=== PATIENT | female | born 1950 | race Caucasian/White ===

== ENCOUNTER → 2017-09-04 | Outpatient (CLI) | payer OTHER ==
[~2017-09-04] MED LIST: ATEN50TA7; ATEN50TA7 PO; CETI10 PO; COMMODE 3-IN-11 MIS; DIAZ5TAB; DICL1GEL7; EMPA1TAB3 PO; GABA400C5; GABA600T PO; GLIP5TAB; GLIP5TAB PO; HYDR-3583 PO; LISI10TA3; LOSA50TA PO; POTA-163 PO; SERT-129; SERT-129 PO; WALKER WHEELS/F1 MIS; ZANA4CAP PO
[2017-09-04 09:25] LABS: AUTOMATED NEUTROPHIL # 5.6 TH/MM3 (1.8-7.7); BASOPHIL % 0.4 % (0.0-2.0); EOSINOPHIL # 0.1 TH/MM3 (0-0.4); EOSINOPHIL % 1.7 % (0.0-4.0); HEMO FLAGS DIFF FINAL; LYMPH % 16.3 % (9.0-44.0); LYMPHOCYTE # 1.2 TH/MM3 (1.0-4.8); MEAN CELL VOLUME 89.6 FL (80.0-100.0); MEAN CORPUSCULAR HEMOGLOBIN 31.9 PG (27.0-34.0); MEAN CORPUSCULAR HGB CONC 35.5 % (32.0-36.0); MONO % 8.4 % (0.0-8.0); NEUT % 73.2 % (16.0-70.0); PLATELET COUNT 191 TH/MM3 (150-450); RED BLOOD COUNT 4.35 MIL/MM3 (4.00-5.30); RED CELL DISTRIBUTION WIDTH 13.4 % (11.6-17.2); WHITE BLOOD COUNT 7.7 TH/MM3 (4.0-11.0)
[2017-09-04 09:26] LABS: APTT (PATIENT) 24.7 SEC (24.3-30.1); PROTHROMBIN TIME - PATIENT 10.9 SEC (9.8-11.6)
[2017-09-04 09:50] LABS: BLOOD, URINE NEG (NEG); COMMENT (UR) CULT NOT INDICATED; CULTURE IF INDICATED CULT NOT INDICATED; GLUCOSE,URINE NEG (NEG); KETONE, URINE NEG (NEG); NITRITE,URINE NEG (NEG); PH, URINE 7.5 (5.0-8.5); SQUAMOUS EPITHELIAL CELL URINE 1 /hpf (0-5); TRANSITIONAL EPI CELLS, URINE <1 /hpf; URINE COLOR YELLOW (YELLW/STRAW)
--- NOTE | 2017-09-04 09:59 | RADRPT ---
EXAM DATE/TIME: 09/04/2017 09:32 [facility] COMPARISON: No previous studies available for comparison. INDICATIONS : Evaluate for pneumonia, pneumothorax, or communicable disease. Pre op for lumbar surgery. MEDICAL HISTORY : Hypertension. Osteoarthritis. Diabetic. SURGICAL HISTORY : Tubal ligation. ENCOUNTER: Initial ACUITY: 1 day PAIN SCORE: 0/10 LOCATION: chest FINDINGS: PA and lateral views of the chest demonstrate the lungs to be symmetrically aerated without evidence of mass, infiltrate or effusion. The cardiomediastinal contours are unremarkable. Osseous structure s are intact. CONCLUSION: No acute disease. Sanjeev Kirby MD on September 04, 2017 at 9:57 Board Certified Radiologist. This report was verified electronically.
[2017-09-04 11:33] LABS: ALT (GPT) 34 U/L (10-53); ANION GAP 10 MEQ/L (5-15); BICARBONATE 31.3 MEQ/L (21.0-32.0); BLOOD UREA NITROGEN 7 MG/DL (7-18); CHLORIDE 88 MEQ/L (98-107); GLOMERULAR FILTRATION RATE 80 ML/MIN (>89); GLUCOSE,FASTING 203 MG/DL (74-99); POTASSIUM 3.3 MEQ/L (3.5-5.1); SODIUM (NA) 129 MEQ/L (136-145)
[2017-09-04 11:38] LABS: ALKALINE PHOSPHATASE 106 U/L (45-117); AST (GOT) 19 U/L (15-37); TOTAL BILIRUBIN ADULT 0.9 MG/DL (0.2-1.0)
--- NOTE | 2017-09-04 13:21 | EKG ---
Date Performed: 09/04/2017 Time Performed: 08:46:08 PTAGE: 67 years EKG: Sinus rhythm NORMAL ECG NO PREVIOUS TRACING DOCTOR: Joe Garcia Interpretating Date/Time 09/04/2017 13:16:05
== END ==
LOC: CPRE 08:17
PROVIDERS: ATTEND Neurological Surgery
DX: Z01.812 Encounter for preprocedural laboratory examination (principal); Z01.811 Encounter for preprocedural respiratory examination; Z01.810 Encounter for preprocedural cardiovascular examination; M47.816 Spondylosis without myelopathy or radiculopathy, lumbar region
CPT/HCPCS: 36415; 71020; 80053; 81001; 85025; 85610; 85730; 93005

== ENCOUNTER → 2017-09-10 | Outpatient (CLI) | payer OTHER ==
[~2017-09-10] MED LIST changes: -ATEN50TA7; -DIAZ5TAB; -DICL1GEL7; -GABA400C5; -GLIP5TAB; -LISI10TA3; -SERT-129
[2017-09-10 12:17] LABS: GLUCOSE,FASTING 106 MG/DL (74-99)
[2017-09-10 17:27] LABS: HEMOGLOBIN A1b 1.7 %; HEMOGLOBIN Ao 83.8 %; HEMOGLOBIN F 0.2 %; HEMOGLOBIN LA1C 2.2 %; HEMOGLOBIN P3 3.9 %
== END ==
LOC: CPRE 10:24
PROVIDERS: ATTEND Neurological Surgery
DX: Z01.812 Encounter for preprocedural laboratory examination (principal); E11.9 Type 2 diabetes mellitus without complications; M47.816 Spondylosis without myelopathy or radiculopathy, lumbar region
CPT/HCPCS: 36415; 82947; 83036

== ENCOUNTER 2017-09-12 06:22 | Inpatient (IN) | payer OTHER ==
[~2017-09-12] VITALS: Ht 172.7 cm; Wt 102.8 kg
[~2017-09-12 06:22] MED LIST changes: -COMMODE 3-IN-11 MIS; -HYDR-3583 PO; -POTA-163 PO; -WALKER WHEELS/F1 MIS; -ZANA4CAP PO
[2017-09-12] MEDS ORDERED: POVIDONE IODINE 5% (ANTISEPSIS KIT) 4 APPLICATIONS EACH NARE PRN (06:45)
[2017-09-12] MEDS ORDERED: INSULIN HUMAN REGULAR 1,000 UNITS/10 ML VIAL SQ PRN (06:45)
[2017-09-12] MEDS ORDERED: LACTATED RINGER'S 1000 ML IV PRN (06:45)
[2017-09-12] MEDS ORDERED: METOPROLOL TARTRATE 25 MG TAB PO PRN (06:45)
[2017-09-12] MEDS ORDERED: CHLORHEXIDINE GLUCONATE 2 % 1 PACK (2 CLOTHS) TOPICAL PRN (06:45)
[2017-09-12] MEDS ORDERED: SODIUM CHLORID 0.9% 500 ML IV PRN (06:45)
[2017-09-12] MEDS ORDERED: SODIUM CHLOR 0.9% 1000 ML INJ 1,000 ML IV SCH (07:00)
[2017-09-12] MEDS ORDERED: VANCOMYCIN HCL 1000 MG ON-CALL/NS 250 ML IV SCH ×2 (07:00)
[2017-09-12] MEDS ORDERED: VANCOMYCIN HCL 1000 MG VIAL ONE (07:25)
[2017-09-12] MEDS ORDERED: THROMBIN (TOPICAL) 5,000 UNIT VIAL ONE (07:26)
[2017-09-12] MEDS ORDERED: GELFOAM SIZE 100 ONE (07:26)
[2017-09-12] MEDS ORDERED: HEPARIN SODIUM - SQ 10,000 UNITS/ML VIAL ONE (07:26)
[2017-09-12] MEDS ORDERED: ceFAZolin 2 GM PREMIX 50 ML ONE ×2 (07:26→10:13)
[2017-09-12] MEDS ORDERED: BUPIVACAINE/EPINEPHRINE 0.5% PF 30 ML VIAL ONE (07:26)
[2017-09-12] MEDS ORDERED: GENTAMICIN SULFATE 80 MG/2 ML VIAL ONE (07:26)
[2017-09-12] MEDS ORDERED: diphenhydrAMINE HCL 50 MG/ML VIAL ONE (09:22)
[2017-09-12] MEDS ORDERED: PHENYLEPHRINE HCL 10 MG/ML VIAL IV ONE (12:00)
[2017-09-12] MEDS ORDERED: ONDANSETRON HCL 4 MG/2 ML VIAL IV PUSH ONE (12:00)
[2017-09-12] MEDS ORDERED: DEXAMETHASONE SOD PHOS 4 MG/ML VIAL IV ONE (12:00)
[2017-09-12] MEDS ORDERED: PROPOFOL 200 MG/20 ML AMP IV ONE (12:00)
[2017-09-12] MEDS ORDERED: LIDOCAINE HCL 1% PF 5 ML AMPULE OTHER ONE (12:00)
[2017-09-12] MEDS ORDERED: MORPHINE SULFATE 4 MG/ML INJ IV ONE (12:00)
[2017-09-12] MEDS ORDERED: LACTATED RINGER'S 1000 ML INJ 3,000 ML IV ONE (12:00)
[2017-09-12] MEDS ORDERED: ePHEDrine/NS 25 MG/5 ML SYR IV ONE (12:00)
[2017-09-12] MEDS ORDERED: ROCURONIUM INJ 50 MG/5 ML SYRINGE IV PUSH ONE (12:00)
[2017-09-12] MEDS ORDERED: PHENYLEPH/NS 1000 MCG/10 ML SYR IV ONE (12:00)
[2017-09-12] MEDS ORDERED: LABETALOL HCL 100 MG/20 ML VIAL IV ONE (12:00)
[2017-09-12] MEDS ORDERED: MIDAZOLAM HCL 2 MG/2 ML VIAL IV ONE (12:00)
[2017-09-12] MEDS ORDERED: PROPOFOL 500 MG/50 ML INJ 150 ML ONE (13:14)
[2017-09-12] MEDS ORDERED: NALOXONE HCL 0.4 MG/ML AMP IV PUSH PRN (14:30)
[2017-09-12] MEDS: SODIUM CHLORIDE 0.9% FLUSH 5 ML FLUSH IVF SCH ×2 (14:30→21:00)
[2017-09-12] MEDS ORDERED: MAGNESIUM HYDROXIDE SUSP 30 ML CUP PO PRN (14:30)
[2017-09-12] MEDS ORDERED: ACETAMINOPHEN 325 MG TAB PO PRN (14:30)
[2017-09-12] MEDS ORDERED: diphenhydrAMINE HCL 50 MG/ML VIAL IV PUSH PRN (14:30)
[2017-09-12] MEDS ORDERED: cloNIDine HCL 0.1 MG TAB PO/NG PRN (14:30)
[2017-09-12] MEDS ORDERED: BISACODYL 10 MG SUPP RECTAL PRN (14:30)
[2017-09-12] MEDS ORDERED: ONDANSETRON HCL 4 MG/2 ML VIAL IV PUSH PRN (14:30)
[2017-09-12] MEDS ORDERED: ACETAMINOPHEN/HYDROcodone 325 MG/10 MG TAB PO PRN (14:30)
[2017-09-12] MEDS ORDERED: RESP: ALBUTEROL 2.5 MG/3 ML NEB (PRN) INH (14:30)
[2017-09-12] MEDS ORDERED: MENTHOL LOZENGE BUCCAL PRN (14:30)
[2017-09-12] MEDS ORDERED: SODIUM CHLORIDE 0.9% FLUSH 5 ML FLUSH IVF PRN (14:30)
[2017-09-12] MEDS ORDERED: GLUCAGON 1 MG/ML VIAL OTHER PRN (14:30)
[2017-09-12] MEDS ORDERED: DEXTROSE 50% IN WATER 50 ML VIAL(D50) IV PUSH PRN (14:30)
[2017-09-12] MEDS ORDERED: SODIUM CHLORID 0.9% 500 ML INJ 500 ML IV ONE (15:00)
[2017-09-12] MEDS: PCA - TOTAL MG DILAUDID DELIVERED PER SHIFT SCH ×2 (15:00→22:00)
[2017-09-12] MEDS ORDERED: MORPHINE SULFATE 2 MG/ML INJ IV PUSH PRN (15:15)
[2017-09-12] MEDS ORDERED: DO NOT ADM ANY ANTICOAGULANT DRUGS PRN (15:26)
[2017-09-12] MEDS: HYDROmorphone HCL PCA 6 MG/30 ML IV SCH (16:00)
[2017-09-12] MEDS: SODIUM CHLOR 0.9% 1000 ML INJ 1,000 ML IV SCH (16:00)
[2017-09-12] MEDS ORDERED: *HYDROmorphone PF 1 MG VIAL PERIprocedural Use ONLY ONE (16:07)
[2017-09-12] MEDS: INSULIN ASPART SUPPLEMENTAL SCALE SQ SCH ×2 (16:23→22:11)
--- NOTE | 2017-09-12 16:30 | RADRPT ---
EXAM DATE/TIME: 09/12/2017 09:37 [facility] COMPARISON: No previous studies available for comparison. INDICATIONS : Fusion L2,L3 and L3,L4 with screw and romeo placement. MEDICAL HISTORY : Hypertension. Osteoarthritis. Diabetic. SURGICAL HISTORY : Tubal ligation. ENCOUNTER: Initial ACUITY: 1 day PAIN SCORE: Non-responsive. LOCATION: Lumbar spine. FINDINGS: 2 intraoperative targeted views of the lumbar spine. Three-level transpedicular posterior fixation wi th intervertebral disc prostheses. Hardware all appears to be intact. CONCLUSION: Three-level transpedicular posterior fixation with intervertebral disc prostheses. Jasper Slater MD on September 12, 2017 at 16:16 Board Certified Radiologist. This report was verified electronically.
--- NOTE | 2017-09-12 17:04 | PD.CONS ---
[facility] Huff[facility] Reason for Consult Assist with medical management Primary Care Physician Regina Camargo MD Diagnoses: History of Present Illness Patient is a 67 year old female with PMHX of anxiety, chronic low back pain, DM2 , HTN, Ostearthritis who came into the hospital for elective surgical procedure with Dr. Huffman. Patient has chronic low back pain and was found to have lumbar spinal stenosis failed conservative treatment. Patient was previously seen by orthopedics and was recommended physical therapy, she also was followed by [facility] pain management and had steroid injections but she continues to have low back pain. She underwent L2 to L3, L3 to L4 laminectomy. She was seen and examined today. Slightly drowsy but able to answer questions and commands. Patient states that pain is manageable. She is on TRANSLITERATOR pump. Denies any chest pain, palpitations, headaches, dizziness. Denies shortness of breath or dyspnea. Denies abdominal pain, nausea, vomiting, diarrhea, constipation. Past Family Social History Allergies: Coded Allergies: No Known Allergies (Verified Allergy, Unknown, 09/12/17) Physical Exam Vital Signs Vital Signs Date Time Temp Pulse Resp B/P (MAP) Pulse Ox O2 Delivery O2 Flow Rate FiO2 09/12/17 16:45 78 14 121/65 (83) 98 09/12/17 16:30 76 17 125/60 (81) 97 09/12/17 16:15 79 12 125/60 (81) 95 09/12/17 16:00 20 09/12/17 16:00 80 12 119/58 (78) 93 09/12/17 15:45 85 13 116/55 (75) 95 Nasal Cannula 2 09/12/17 15:30 98.8 87 18 98/54 (69) 94 Nasal Cannula 2 09/12/17 07:17 97.8 67 16 135/73 (93) 96 Physical Exam GENERAL: This is a well-nourished, well-developed patient, in no apparent distress. SKIN: Warm and dry. HEAD: Normocephalic. No temporal or scalp tenderness. EYES: Pupils equal round and reactive. Extraocular motions intact. No scleral icterus. No injection or drainage. ENT: Nose without bleeding. Throat without erythema. Uvula midline. Airway patent. NECK: Trachea midline. CARDIOVASCULAR: Regular rate and rhythm without murmurs, gallops, or rubs. RESPIRATORY: Clear to auscultation. Breath sounds equal bilaterally. No wheezes , rales, or rhonchi. GASTROINTESTINAL: Abdomen soft, non-tender, nondistended. Bowel sounds hypoactive. MUSCULOSKELETAL: Extremities without clubbing, cyanosis, or edema. Midback with RUTH drain, draining moderate amounts sanguinous drainage. NEUROLOGICAL: Awake and alert. Oriented to person, place, time. Cranial nerves II through XII intact. Motor and sensory grossly within normal limits. Normal speech. Assessment and Plan Problem List: (1) Lumbar stenosis ICD Code: M48.061 - Spinal stenosis, lumbar region without neurogenic claudication Status: Acute (2) S/P lumbar laminectomy ICD Code: Z98.890 - Other specified postprocedural states Status: Acute (3) HTN (hypertension) ICD Code: I10 - Essential (primary) hypertension Status: Chronic (4) DM type 2 (diabetes mellitus, type 2) ICD Code: E11.9 - Type 2 diabetes mellitus without complications Status: Chronic Assessment and Plan Patient is a 67 year old female with PMHX of anxiety, chronic low back pain, DM2 , HTN, Ostearthritis who came into the hospital for elective surgical procedure with Dr. Huffman. Status post due to L3, L3 to L4 laminectomy Lumbar spinal stenosis - Procedure done by Dr. Huffman, attending - Pain management, TRANSLITERATOR Dilaudid Pump, gabapentin, Flexeril - RUTH drain maintenance - Cefazolin IV every 8 hours - PT evaluate and treat HTN, chronic - Continue with home medication atenolol/chlorthalidone 50/25 mg twice a day , losartan 50 mg daily - Monitor BP trend DM 2 - Patient home medication includes glipizide/metformin, Jardiance - Hold off home meds for now and restart when discharged or when patient is able to sit up and eat - Insulin sliding scale. Monitor Accu-Cheks Anxiety - Continue home medications sertraline DVT prop SCDs Code Status Full code Discussed Condition With Patient, nursing, Shari Rubi Sep 12, 2017 5:04 pm
[2017-09-12 17:15] VITALS: BP 133/59; PULSE 78; RESP 17; TEMP 97; O2SAT 98
--- NOTE | 2017-09-12 17:17 | PD.OP ---
Operative Report Date of Surgery: Sep 12, 2017 Preoperative Diagnosis: Lumbar spondylosis and spondylolisthesis Postoperative Diagnosis: Lumbar spondylosis and spondylolisthesis Procedure: L2-L3, L3-L4 decompressive laminectomy, interbody arthrodhesis using PEEK cage and autologous bone graft, L2-L3, L3-L4 instrumental fixation using transpedicular screws and rods, L2-L3, L3-L4 posterolateral fusion using autologous bone graft and rods. Microsurgical dissection Anesthesia: general Surgeon: Albaro Huffman Title Investigator(s): Inez Murphy Operation and Findings: INDICATIONS FOR THE SURGICAL PROCEDURE Ms Lamas is a 67 year-old male who presented with intractable mechanical back pain and stan evidence of right L3 and L4 lower extremity radiculopathy. She had severe spondylosis with spondylolisthesis and facet arthropathy with spondylolisthesis and loss of disk space height at both levels. She failed maximum nonsurgical management including multiple modalities of conservative treatment as well as pain management interventions by an interventional pain specialist. A surgical decompression and arthrodhesis were indicated as a last resort. The [id number] details of the procedure, indications, alternatives, risks and potential complications were fully discussed with the patient. She fully understood. All the questions were answered. No guarantees were given. The patient voiced requesting the procedure and provided informed consents. The patient was offered the alternative of delaying the procedure and continuing with nonsurgical management. DETAILS OF THE SURGICAL PROCEDURE Prior to the procedure, the surgical incision was marked in the preoperative surgical holding room, and the procedure, risks, and potential complications revisited with the patient. Placement of electrodes for intraoperative neurophysiological monitoring was completed. The patient was taken to the operative room, and following induction of general anesthesia, endotracheal intubation was performed. A Johnston catheter, bilateral BAHMAN hose and sequential compression devices were placed and kept throughout the procedure. The patient was positioned prone, over a Geremias table over a Aries frame. All pressure in the preoperative surgical holding room points were carefully padded with eggcrate and gel mattress. The eyes were tapped shut after ointment was applied by the anesthesiologist to prevent corneal abrasion. A Lasha hugger was placed over the expossed lower body to maintain control of the core body temperature. The electrophysiological team placed the needles and electrodes in their proper location and baseline SSEP's and motor evoked potentials were registered prior and following the positioning. The entrance to each pedicles was marked using a C arm. The lumbar region was prepped and draped in the usual sterile fashion. The surgical procedure was performed in several steps as follow: SURGICAL APPROACH Once the patient was positioned, a localizing cross-table lateral x-ray was performed with a C-arm. Two paramedian small incisions were outlined on the skin approximately 3cm from the midline. The skin incisions were made with a # 10 blade. Small bleeders were controlled with the cautery. The dissection was then carried out into deper planes and through the thoracolumbar fascia with a Bovie. The intermuscular septum was identified and the myscles were blunted dissected along the septum. The facets and transverse process of L2, L3, L4 were exposed and the proper anatomical landmarks were identified. A microsurgical self-retaining retractor was placed on the incision, and a localizing lateralizing cross-table x-ray was performed with an instrument underneath a lamina of the lumbar spine. There was a bilateral pars defect with gross instability of the bony structures. INSTRUMENTAL FIXATION At this point in the procedure, placement of bilateral transpedicular screws was necessary for stabilization of the spine. Initially, the entry point for the screw was selected anatomically at the junction of the facet, with the transverse process, and the pars interarticularis at L2-L3, L3-L4. This was started with a Giamshetti needle, followed by the use of an declid wire, and then a tap was used to create the threads for the screws. Finally bilateral transpedicular screws were carefully placed bilaterally at L2, L3, L4 under fluoroscopic visualization. An appropriate purchase was achieved with all screws. The position of each screw was assessed anatomically with an AP, lateral , oblique Xrays. An intraoperative scan view of the spine was then performed using the iso-centric c-arm. Each screw was then assessed electrophysiologically with a nerve stimulator. SURGICAL DECOMPRESSION There was significant mass effect with compression of the neural structures. In order to relieve neural compression, it was necessary to perform a decompressive laminectomy, with decompression of the spinal canal and bilateral lateral recesses. Note that the scope of such decompression was significantly more extensive than the minimal exposure necessary to perform an interbody fusion, as there was extreme facet arthropathy with near complete collapse of the disk spaces and severe stenosis cause by the hyperthrophic joint facets. At this point of the procedure the operative microscope was draped in the usual sterile fashion and brought to the field. The rest of the surgical procedure was performed using microdissection technique with the exception of the closure. Under the operating microscope, a decompressive laminectomy was carried out at L2-L3, and L3-L4 as follow: The laminae, base of the spinous processes and facets were carefully drilled exposing the ligamentum flavum. The facets were abnormal with severe facet arthropathy, vacuum facets, and mass effect over the neural structures. A broad disk protusion was contributing to compression of the neural structures and exiting L3 and L4 nerve roots. A near complete facetectomy was necessary resulting in further mechanical instability. The ligamentum flavum appeared hypertrophic, resulting on mass effect on the dorsal surface of the neural structures. The superior free border of the ligamentum flavum was elevated with a ligament dissector and the ligamentum flavum was removed with a 3 and 4 mm Kerrison forceps. The ligament was very adherent to the dural sac and during the dissection, ans extreme care was taken during the dissection. The exiting nerve roots were identified, and a wide foraminotomy was performed with a Kerrison in their trajectory towards the neural foramenat both levels. Epidural veins located laterally to the dural sac were coagulated with the bipolar cautery, and then incised using microscissors. Gentle medial retraction of the dural sac allowed me to expose the disc space for the discectomy. Upon completion of the discectomy, an excellent decompression of the neural structures was achieved. INTERBODY ARTHRODHESIS In order to correct the narrowing of the disk space and maintain distraction of the space, and to achieve a solid interbody fusion, it was necessary the insertion of an interbody device into the disk space. Otherwise, the disk space would collapse, compromising the result of the surgical procedure. At this point of the procedure, the annulus fibrosus of the disk at L2-L3, and L3-L4 were carefully coagulated with a bipolar cautery and incised using an 11 bladed knife. Then, a microdiscectomy was carried out in a standard fashion using a combination of straight and up-biting pituitary forceps. A reverse angle curette was applied underneath the posterior longitudinal ligament, and used to push the disk fragments into the disk space, so they can be safely removed with a pituitary forceps. Once the discectomy was completed, it was necessary to decorticate the endplates, in order to eliminate the cartilaginous endplate and to expose healthy bone appropriate to perform the interbody fusion. The endplates at L2-L3, and L3-L4 were then thoroughly decorticated using increasing size bone rene and ring curets, eliminating the cartilaginous fragments from both, the superior and inferior endplates. A disk space distractor was applied to the pedicle screws and gentle distraction was applied. This maneuver was assisted by the use of a disk distractor. Once a thorough preparation of the disk space was achieved, the disk space was irrigated with antibiotic solution, and the interbody fusion was performed by carefully impacting expandable PEEK cages filled with autologous iliac crest bone graft. The cages were properly deployed and thereafter packed with further bone graft by the use of a funnel. A solid position of the cage with good purchase was achieved at both levels. The position of the cages were assessed anatomically with a probe and radiologically with the C-arm. POSTEROLATERAL FUSION The posterolateral fusion is a critical component to the procedure, to prevent future fatigue and failure of the instrumental fixation. Initially, the transverse processes of the vertebral bodies, lateral surface of the facets and the lateral gutters of the spine were carefully cleaned, eliminating all soft tissue and muscle attachments. The area was then irrigated with a large amount of antibiotic solution. Subsequently, the transverse processes, lateral surface of the facets, and lateral gutters of the spine were thoroughly decorticated using the TPS drill with a 5mm cutting regulo, exposing cancellous bone, in preparation for the posterolateral fusion. The incision was again irrigated with antibiotic solution. Then, the posterolateral fusion was then performed by carefully packing the lateral gutters of the spine at L2-L3, and L3-L4 with autologous bone combined with demineralized bone matrix. I packed as much bone as possible. COMPLETION OF THE INSTRUMENTATION AND CLOSURE The rods were brought to the field, applied to all the screws, and the screw caps were sequentially applied. Compression was performed between the pedicle screws, and final tightening of the screws was completed using a torque wrench The incision was again thoroughly irrigated with several liters of antibiotic solution, and hemostasis secured with the bipolar cautery. A Valsalva Maneuver performed by the anesthesiologist failed to show any evidence of cerebrospinal fluid leak or bleeding. A 7 mm Geremias-Galvan drain was left in the epidural space and externalized through a separate stab incision. The incision was then closed in planes. 0 Vicryl was used in an interrupted fashion to close the thoracolumbar fascia and the superficial fascia. The subcutaneous tissue was then approximated using 3-0 Vicryl in an interrupted fashion. Special care was taken to avoid space. The skin was then closed with 4-0 Vicryl in a running, subcuticular fashion. Dermabond was applied to the skin. Each plane of closure was irrigated with antibiotic solution. At the end of the procedure the sponge, needle and instrument counts were all correct. Estimated blood loss was 250 cc or less. No blood transfusion was given. The entire procedure was performed using continuous electrophysiological monitoring of the somatosensorial evoked potentials and EMG. The patient received prophylactic antibiotics. The patient was then extubated and transferred to the recovery room in stable condition. Albaro Huffman MD Sep 12, 2017 17:17
[2017-09-12] MEDS: GABAPENTIN 300 MG CAP PO SCH (18:39)
[2017-09-12 20:00] VITALS: BP 108/57; PULSE 76; RESP 17; TEMP 96.1; O2SAT 96
[2017-09-12] MEDS: ATENOLOL/CHLORTHALIDONE 50/25 TAB PO SCH (21:00)
[2017-09-12] MEDS: DOCUSATE SODIUM 100 MG CAP PO SCH (21:46)
[2017-09-12] MEDS: ceFAZolin 2 GM PREMIX 50 ML IV SCH (21:46)
[2017-09-12] MEDS: CHLORHEXIDINE GLUCONATE 4% SOLN 120 ML BTL TOP SCH (22:02)
[2017-09-13] VITALS: BP 109/56; PULSE 80; RESP 16; TEMP 97.9; O2SAT 97
[2017-09-13] MEDS: CYCLOBENZAPRINE HCL 10 MG TAB PO PRN ×2 (00:37→21:52)
[2017-09-13] MEDS: SODIUM CHLOR 0.9% 1000 ML INJ 1,000 ML IV SCH (00:44)
[2017-09-13 04:00] VITALS: BP 131/62; PULSE 81; RESP 18; TEMP 99.6; O2SAT 96
[2017-09-13] MEDS: PCA - TOTAL MG DILAUDID DELIVERED PER SHIFT SCH ×3 (06:00→20:35)
[2017-09-13] MEDS: ceFAZolin 2 GM PREMIX 50 ML IV SCH ×2 (06:31→13:03)
[2017-09-13 06:56] LABS: BICARBONATE 29.5 MEQ/L (21.0-32.0)
[2017-09-13 07:12] LABS: AUTOMATED NEUTROPHIL # 6.8 TH/MM3 (1.8-7.7); BASOPHIL % 0.3 % (0.0-2.0); EOSINOPHIL # 0.1 TH/MM3 (0-0.4); EOSINOPHIL % 1.2 % (0.0-4.0); HEMATOCRIT 32.3 % (35.0-46.0); HEMO FLAGS DIFF FINAL; LYMPH % 3.5 % (9.0-44.0); LYMPHOCYTE # 0.3 TH/MM3 (1.0-4.8); MEAN CELL VOLUME 91.4 FL (80.0-100.0); MEAN CORPUSCULAR HEMOGLOBIN 32.5 PG (27.0-34.0); MEAN CORPUSCULAR HGB CONC 35.6 % (32.0-36.0); MONO % 6.8 % (0.0-8.0); NEUT % 88.2 % (16.0-70.0); PLATELET COUNT 162 TH/MM3 (150-450); RED BLOOD COUNT 3.53 MIL/MM3 (4.00-5.30); RED CELL DISTRIBUTION WIDTH 13.8 % (11.6-17.2); WHITE BLOOD COUNT 7.7 TH/MM3 (4.0-11.0)
[2017-09-13] MEDS ORDERED: POTASSIUM CHLORIDE 10 MEQ CONTROLLED RELEASE TAB PO ONE (07:45)
[2017-09-13 08:00] VITALS: BP 113/61; PULSE 103; RESP 17; TEMP 99.7; O2SAT 98
--- NOTE | 2017-09-13 08:40 | HHI.PR ---
Subjective Remarks Follow up diabetes. Patient states that she has some back pain. Legs are occasionally numb. She denies chest pain, dyspnea, nausea, vomiting. Objective Vitals Vital Signs Date Time Temp Pulse Resp B/P (MAP) Pulse Ox O2 Delivery O2 Flow Rate FiO2 09/13/17 06:00 16 09/13/17 04:00 99.6 81 18 131/62 (85) 96 09/13/17 00:00 97.9 80 16 109/56 (73) 97 09/12/17 22:00 18 09/12/17 20:00 96.1 76 17 108/57 (74) 96 09/12/17 17:15 97.0 78 17 133/59 (83) 98 09/12/17 17:00 98.8 79 16 121/65 (83) 98 Nasal Cannula 2 09/12/17 16:45 78 14 121/65 (83) 98 09/12/17 16:30 76 17 125/60 (81) 97 09/12/17 16:15 79 12 125/60 (81) 95 09/12/17 16:00 20 09/12/17 16:00 80 12 119/58 (78) 93 09/12/17 15:45 85 13 116/55 (75) 95 Nasal Cannula 2 09/12/17 15:30 98.8 87 18 98/54 (69) 94 Nasal Cannula 2 I/O 09/12/17 09/12/17 09/12/17 09/13/17 09/13/17 09/13/17 07:00 15:00 23:00 07:00 15:00 23:00 Intake Total 2300 ml 1191 ml 1355 ml Output Total 500 ml 680 ml 450 ml Balance 1800 ml 511 ml 905 ml Intake Oral 480 ml 600 ml IV Total 711 ml 755 ml Other 2300 ml Output Urine Total 500 ml 600 ml 400 ml Drainage Total 80 ml 50 ml Result Diagram: 09/13/17 0505 09/13/17 0505 Imaging Last Impressions Lumbar Spine X-Ray 09/12/17 0000 Signed Impressions: Service Date/Time: Tuesday, September 12, 2017 09:37 - CONCLUSION: Three-level transpedicular posterior fixation with intervertebral disc prostheses. Jaspre Slater MD Objective Remarks General: No acute distress. Heart: Regular rate and rhythm. No murmur. Lungs: Clear to auscultation bilaterally. No wheezes, rales, or rhonchi. Breathing is nonlabored. Abdomen: Soft, nontender, nondistended. Extremities: No lower extremity edema. SCDs. Psych: Alert and oriented. Procedures 09/12/17 lumbar laminectomy Urinary Catheter: Yes Assessment to: Continue Johnston insert reason: Surgical/Invasive Proced Vascular Central Line Catheter: No A/P Problem List: (1) Lumbar stenosis ICD Code: M48.061 - Spinal stenosis, lumbar region without neurogenic claudication Status: Acute (2) S/P lumbar laminectomy ICD Code: Z98.890 - Other specified postprocedural states Status: Acute (3) HTN (hypertension) ICD Code: I10 - Essential (primary) hypertension Status: Chronic (4) DM type 2 (diabetes mellitus, type 2) ICD Code: E11.9 - Type 2 diabetes mellitus without complications Status: Chronic Assessment and Plan 1. Lumbar spinal stenosis: Status post lumbar laminectomy. Management per neurosurgery. Continue pain control. Physical therapy. 2. Hypertension, chronic: Continue atenolol, chlorthalidone, losartan. 3. Diabetes mellitus type 2: Restart Jardiance. Hold glipizide, metformin. Monitor Accu-Cheks and cover with sliding scale insulin. Diabetic diet. 4. Anxiety: Continue sertraline. 5. DVT prophylaxis: SCDs. Ryan Back MD Sep 13, 2017 08:40
[2017-09-13] MEDS ORDERED: JARDIANCE 25 MG PO SCH (09:00)
[2017-09-13] MEDS: NS + KCL 20 MEQ INJ 1,000 ML IV SCH ×2 (09:06→17:38)
[2017-09-13] MEDS: INSULIN ASPART SUPPLEMENTAL SCALE SQ SCH ×4 (09:07→23:51)
[2017-09-13] MEDS: GABAPENTIN 300 MG CAP PO SCH ×3 (09:08→17:37)
[2017-09-13] MEDS: SERTRALINE HCL 100 MG TAB PO SCH (09:08)
[2017-09-13] MEDS: SODIUM CHLORIDE 0.9% FLUSH 5 ML FLUSH IVF SCH ×2 (09:09→20:35)
[2017-09-13] MEDS: DOCUSATE SODIUM 100 MG CAP PO SCH ×2 (09:09→20:35)
[2017-09-13] MEDS: PANTOPRAZOLE SOD 40 MG DELAYED RELEASE TAB PO SCH (09:09)
[2017-09-13] MEDS: LOSARTAN 50 MG TAB PO SCH (09:09)
[2017-09-13] MEDS: ATENOLOL/CHLORTHALIDONE 50/25 TAB PO SCH ×2 (09:11→20:35)
[2017-09-13] MEDS: CETIRIZINE HCL 10 MG TAB PO SCH (09:11)
--- NOTE | 2017-09-13 09:59 | HHI.NSPN ---
History Interval History Postop day 1 status post L2 to 4 posterior lumbar interbody fusion and pedicle screw instrumentation. Patient having moderate incisional pain. No complaints of radicular pain into the lower extremities. Exam Results Vital Signs Date Time Temp Pulse Resp B/P (MAP) Pulse Ox O2 Delivery O2 Flow Rate FiO2 09/13/17 08:00 99.7 103 17 113/61 (78) 98 09/12/17 17:00 Nasal Cannula 2 Intake and Output 09/13/17 09/13/17 09/14/17 08:00 16:00 00:00 Intake Total 1355 ml Output Total 450 ml Balance 905 ml Physical Examination Neurological examination: Patient is alert and oriented. Motor function 5 over 5 in the upper and lower extremities. Sensory intact to primary modalities. Lumbar dressing is dry and intact. Lab, Micro, Other Results Laboratory Tests Test 09/13/17 05:05 White Blood Count 7.7 Red Blood Count 3.53 Hemoglobin 11.5 Hematocrit 32.3 Mean Corpuscular Volume 91.4 Mean Corpuscular Hemoglobin 32.5 Mean Corpuscular Hemoglobin Concent 35.6 Red Cell Distribution Width 13.8 Platelet Count 162 Mean Platelet Volume 9.4 Neutrophils (%) (Auto) 88.2 Lymphocytes (%) (Auto) 3.5 Monocytes (%) (Auto) 6.8 Eosinophils (%) (Auto) 1.2 Basophils (%) (Auto) 0.3 Neutrophils # (Auto) 6.8 Lymphocytes # (Auto) 0.3 Monocytes # (Auto) 0.5 Eosinophils # (Auto) 0.1 Basophils # (Auto) 0.0 CBC Comment DIFF FINAL Differential Comment Blood Urea Nitrogen 11 Creatinine 0.67 Random Glucose 149 Calcium Level 7.8 Sodium Level 128 Potassium Level 3.0 Chloride Level 90 Carbon Dioxide Level 29.5 Anion Gap 9 Estimat Glomerular Filtration Rate 88 Medical Decision Making Impression and Plan Status post L2 to 4 fusion. Stable postoperative course. Plan: Begin physical therapy. Continue current pain medication. Johnston out when patient is able to ambulate to the bathroom. Joe Martin MD Sep 13, 2017 09:59
[2017-09-13] MEDS: HYDROmorphone HCL PCA 6 MG/30 ML IV SCH (10:46)
[2017-09-13 12:00] VITALS: BP 121/60; PULSE 94; RESP 17; TEMP 98.3; O2SAT 94
[2017-09-13 16:00] VITALS: BP 133/71; PULSE 103; RESP 17; TEMP 99; O2SAT 94
[2017-09-13 20:40] VITALS: BP 120/58; PULSE 90; RESP 18; TEMP 99.6; O2SAT 96
[2017-09-14] VITALS (9 sets, daily range): BP systolic 107–134; BP diastolic 55–65; PULSE 61–92; RESP 17–18; TEMP 97.3–99.3; O2SAT 95–99
[2017-09-14] MEDS: NS + KCL 20 MEQ INJ 1,000 ML IV SCH ×3 (00:04→15:44)
[2017-09-14] MEDS: CHLORHEXIDINE GLUCONATE 4% SOLN 120 ML BTL TOP SCH ×2 (03:00→21:00)
[2017-09-14] MEDS: PCA - TOTAL MG DILAUDID DELIVERED PER SHIFT SCH ×2 (06:00→14:00)
[2017-09-14 07:39] LABS: AUTOMATED NEUTROPHIL # 3.9 TH/MM3 (1.8-7.7); BASOPHIL % 0.4 % (0.0-2.0); EOSINOPHIL # 0.1 TH/MM3 (0-0.4); EOSINOPHIL % 2.2 % (0.0-4.0); HEMATOCRIT 28.8 % (35.0-46.0); HEMO FLAGS DIFF FINAL; LYMPH % 12.3 % (9.0-44.0); LYMPHOCYTE # 0.7 TH/MM3 (1.0-4.8); MEAN CELL VOLUME 90.4 FL (80.0-100.0); MEAN CORPUSCULAR HEMOGLOBIN 31.6 PG (27.0-34.0); MEAN CORPUSCULAR HGB CONC 34.9 % (32.0-36.0); MONO % 11.8 % (0.0-8.0); NEUT % 73.3 % (16.0-70.0); PLATELET COUNT 147 TH/MM3 (150-450); RED BLOOD COUNT 3.18 MIL/MM3 (4.00-5.30); RED CELL DISTRIBUTION WIDTH 13.6 % (11.6-17.2); WHITE BLOOD COUNT 5.3 TH/MM3 (4.0-11.0)
[2017-09-14 07:45] LABS: POTASSIUM 2.9 MEQ/L (3.5-5.1)
[2017-09-14] MEDS: POTASSIUM CHLOR 10 MEQ PREMIX 100 ML IV SCH ×2 (08:30→09:30)
[2017-09-14] MEDS: SERTRALINE HCL 100 MG TAB PO SCH (08:49)
[2017-09-14] MEDS: LOSARTAN 50 MG TAB PO SCH (08:49)
[2017-09-14] MEDS: ATENOLOL/CHLORTHALIDONE 50/25 TAB PO SCH ×2 (08:49→20:45)
[2017-09-14] MEDS: PANTOPRAZOLE SOD 40 MG DELAYED RELEASE TAB PO SCH (08:50)
[2017-09-14] MEDS: DOCUSATE SODIUM 100 MG CAP PO SCH ×2 (08:50→20:44)
[2017-09-14] MEDS: GABAPENTIN 300 MG CAP PO SCH ×3 (08:50→17:41)
[2017-09-14] MEDS: CETIRIZINE HCL 10 MG TAB PO SCH (08:50)
[2017-09-14] MEDS: SODIUM CHLORIDE 0.9% FLUSH 5 ML FLUSH IVF SCH ×2 (08:51→20:45)
[2017-09-14] MEDS: INSULIN ASPART SUPPLEMENTAL SCALE SQ SCH ×4 (09:19→22:44)
--- NOTE | 2017-09-14 10:06 | HHI.FF ---
Face to Face Verification Diagnosis: (1) Lumbar stenosis Physical Therapy Order: Evaluate and Treat, Improve ambulation, Strength and gait training Home Health Nursing Order: Wound care and dressing changes I have seen patient Kayli Lamas on 09/14/17. My clinical findings support the need for the requested home health care services because: Ltd mobility - disease progression I certify that my clinical findings support that this patient is homebound because: Post-op weakness Joe Martin MD Sep 14, 2017 10:06
[2017-09-14] MEDS ORDERED: WALKER WHEELS/F1 MIS (10:08)
--- NOTE | 2017-09-14 10:11 | HHI.NSPN ---
History Interval History 09/13: Postop day 1 status post L2 to 4 posterior lumbar interbody fusion and pedicle screw instrumentation. Patient having moderate incisional pain. No complaints of radicular pain into the lower extremities. 09/14: Mrs. Nobles is resting comfortably in bed. Pain is significantly improved and she has decided on home discharge rather than inpatient rehabilitation. Exam Results Vital Signs Date Time Temp Pulse Resp B/P (MAP) Pulse Ox O2 Delivery O2 Flow Rate FiO2 09/14/17 09:05 97 09/14/17 08:00 99.3 92 17 134/62 (86) 09/12/17 17:00 Nasal Cannula 2 Intake and Output 09/14/17 09/14/17 09/15/17 08:00 16:00 00:00 Intake Total 480 ml Output Total 1210 ml 700 ml Balance -730 ml -700 ml Physical Examination Neurological examination: Patient is alert and oriented. Motor function 5 over 5 in the upper and lower extremities. Sensory intact to primary modalities. Lumbar dressing is dry and intact. Lab, Micro, Other Results Laboratory Tests Test 09/14/17 04:45 White Blood Count 5.3 Red Blood Count 3.18 Hemoglobin 10.0 Hematocrit 28.8 Mean Corpuscular Volume 90.4 Mean Corpuscular Hemoglobin 31.6 Mean Corpuscular Hemoglobin Concent 34.9 Red Cell Distribution Width 13.6 Platelet Count 147 Mean Platelet Volume 8.9 Neutrophils (%) (Auto) 73.3 Lymphocytes (%) (Auto) 12.3 Monocytes (%) (Auto) 11.8 Eosinophils (%) (Auto) 2.2 Basophils (%) (Auto) 0.4 Neutrophils # (Auto) 3.9 Lymphocytes # (Auto) 0.7 Monocytes # (Auto) 0.6 Eosinophils # (Auto) 0.1 Basophils # (Auto) 0.0 CBC Comment DIFF FINAL Differential Comment Blood Urea Nitrogen 6 Creatinine 0.66 Random Glucose 146 Calcium Level 7.6 Magnesium Level 2.0 Sodium Level 129 Potassium Level 2.9 Chloride Level 90 Carbon Dioxide Level 33.0 Anion Gap 6 Estimat Glomerular Filtration Rate 90 Medical Decision Making Impression and Plan Status post L2 to 4 fusion. Stable postoperative course. Hypokalemia. Plan: Continue physical therapy and plan home discharge with home healthcare/ PT. Potassium replacement is ordered and will be rechecked later this afternoon.. We will restart home medications as well. Joe Martin MD Sep 14, 2017 10:11
[2017-09-14] MEDS ORDERED: POTASSIUM CHLORIDE 20 MEQ CONTROLLED RELEASE TAB PO ONE (10:30)
--- NOTE | 2017-09-14 13:34 | HHI.PR ---
Subjective Remarks Follow-up diabetes, back pain. Patient states that her pain is better. She does not need to use the [employer] pump very often. No chest pain, dyspnea, nausea, vomiting. Objective Vitals Vital Signs Date Time Temp Pulse Resp B/P (MAP) Pulse Ox O2 Delivery O2 Flow Rate FiO2 09/14/17 12:00 97.3 75 17 116/65 (82) 97 09/14/17 09:05 97 09/14/17 08:00 99.3 92 17 134/62 (86) 97 09/14/17 06:00 17 09/14/17 04:12 99.1 87 18 116/57 (76) 95 09/14/17 00:11 99.3 86 18 107/55 (72) 95 09/13/17 20:40 99.6 90 18 120/58 (78) 96 09/13/17 20:35 17 09/13/17 16:00 99.0 103 17 133/71 (91) 94 09/13/17 14:00 18 I/O 09/13/17 09/13/17 09/13/17 09/14/17 09/14/17 09/14/17 07:00 15:00 23:00 07:00 15:00 23:00 Intake Total 1355 ml 1146 ml 1841 ml 480 ml Output Total 450 ml 800 ml 2635 ml 1210 ml 1500 ml Balance 905 ml 346 ml -794 ml -730 ml -1500 ml Intake Oral 600 ml 680 ml 240 ml 480 ml IV Total 755 ml 466 ml 1601 ml Output Urine Total 400 ml 800 ml 2600 ml 1200 ml 1500 ml Drainage Total 50 ml 35 ml 10 ml # Bowel Movements 0 0 0 Result Diagram: 09/14/17 0445 09/14/17 0445 Imaging Last Impressions Lumbar Spine X-Ray 09/12/17 0000 Signed Impressions: Service Date/Time: Tuesday, September 12, 2017 09:37 - CONCLUSION: Three-level transpedicular posterior fixation with intervertebral disc prostheses. Jasper Slater MD Objective Remarks General: No acute distress. Sitting up in a chair. Wearing back brace. Heart: Regular rate and rhythm. No murmur. Lungs: Clear to auscultation bilaterally. No wheezes, rales, or rhonchi. Breathing is nonlabored. Abdomen: Soft, nontender, nondistended. Extremities: No lower extremity edema. SCDs. Psych: Alert and oriented. Procedures 09/12/17 lumbar laminectomy Urinary Catheter: No Vascular Central Line Catheter: No A/P Problem List: (1) Lumbar stenosis ICD Code: M48.061 - Spinal stenosis, lumbar region without neurogenic claudication Status: Acute (2) S/P lumbar laminectomy ICD Code: Z98.890 - Other specified postprocedural states Status: Acute (3) HTN (hypertension) ICD Code: I10 - Essential (primary) hypertension Status: Chronic (4) DM type 2 (diabetes mellitus, type 2) ICD Code: E11.9 - Type 2 diabetes mellitus without complications Status: Chronic Assessment and Plan 1. Lumbar spinal stenosis: Status post lumbar laminectomy. Management per neurosurgery. Continue pain control. Physical therapy. 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 2. Hypertension, chronic: Continue atenolol, chlorthalidone, losartan. 3. Diabetes mellitus type 2: Restart Jardiance. Hold glipizide, metformin. Monitor Accu-Cheks and cover with sliding scale insulin. Diabetic diet. 4. Anxiety: Continue sertraline. 5. DVT prophylaxis: SCDs. Ryan Back MD Sep 14, 2017 13:34
[2017-09-14] MEDS ORDERED: MORPHINE SULFATE 2 MG/ML INJ IV PUSH PRN (13:45)
[2017-09-14] MEDS: CYCLOBENZAPRINE HCL 10 MG TAB PO PRN (17:43)
[2017-09-14 21:02] LABS: BICARBONATE 33.4 MEQ/L (21.0-32.0); POTASSIUM 3.7 MEQ/L (3.5-5.1)
[2017-09-15 00:03] VITALS: BP 123/63; PULSE 75; RESP 18; TEMP 98.4; O2SAT 98
[2017-09-15 04:06] VITALS: BP 126/59; PULSE 76; RESP 18; TEMP 97.9; O2SAT 98
[2017-09-15] MEDS: ACETAMINOPHEN/HYDROcodone 325 MG/10 MG TAB PO PRN ×5 (04:18→21:56)
[2017-09-15] MEDS: CYCLOBENZAPRINE HCL 10 MG TAB PO PRN ×2 (04:18→17:59)
[2017-09-15 06:41] LABS: BICARBONATE 31.9 MEQ/L (21.0-32.0); POTASSIUM 3.4 MEQ/L (3.5-5.1)
[2017-09-15 06:46] LABS: BASOPHIL % 0.6 % (0.0-2.0); EOSINOPHIL # 0.1 TH/MM3 (0-0.4); EOSINOPHIL % 2.6 % (0.0-4.0); HEMATOCRIT 26.4 % (35.0-46.0); LYMPH % 11.1 % (9.0-44.0); LYMPHOCYTE # 0.6 TH/MM3 (1.0-4.8); MEAN CELL VOLUME 89.6 FL (80.0-100.0); MEAN CORPUSCULAR HEMOGLOBIN 32.2 PG (27.0-34.0); MONO % 12.4 % (0.0-8.0); NEUT % 73.3 % (16.0-70.0); PLATELET COUNT 136 TH/MM3 (150-450); RED BLOOD COUNT 2.95 MIL/MM3 (4.00-5.30); RED CELL DISTRIBUTION WIDTH 13.5 % (11.6-17.2); WHITE BLOOD COUNT 5.5 TH/MM3 (4.0-11.0)
[2017-09-15 06:58] LABS: HEMO FLAGS AUTO DIFF
[2017-09-15] MEDS ORDERED: POTASSIUM CHLORIDE 20 MEQ CONTROLLED RELEASE TAB PO ONE (07:30)
[2017-09-15 08:00] VITALS: BP 135/61; PULSE 76; RESP 18; TEMP 96.7; O2SAT 100
[2017-09-15] MEDS: INSULIN ASPART SUPPLEMENTAL SCALE SQ SCH ×4 (09:00→22:04)
[2017-09-15] MEDS: SODIUM CHLORIDE 0.9% FLUSH 5 ML FLUSH IVF SCH ×2 (09:00→21:53)
[2017-09-15] MEDS ORDERED: COMMODE 3-IN-11 MIS (09:04)
--- NOTE | 2017-09-15 09:11 | HHI.NSPN ---
(Charleen Multani) Note Status Status: Progress Note (Charleen Multani) Interval History Interval History 09/13: Postop day 1 status post L2 to 4 posterior lumbar interbody fusion and pedicle screw instrumentation. Patient having moderate incisional pain. No complaints of radicular pain into the lower extremities. 09/14: Mrs. Nobles is resting comfortably in bed. Pain is significantly improved and she has decided on home discharge rather than inpatient rehabilitation. 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 also c/o of improper fit of her custom TLSO. she is ambulating well with RW. requesting to stay one more night. (Charleen Multani) Labs, Micro, & Vital Signs Results Date Time Temp Pulse Resp B/P (MAP) Pulse Ox O2 Delivery O2 Flow Rate FiO2 09/15/17 08:00 96.7 76 18 135/61 (85) 100 09/15/17 04:06 97.9 76 18 126/59 (81) 98 09/15/17 00:03 98.4 75 18 123/63 (83) 98 09/14/17 20:06 97.3 74 18 110/58 (75) 99 09/14/17 18:33 96 09/14/17 17:44 98.3 09/14/17 15:45 61 17 109/60 (76) 96 09/14/17 14:00 18 09/14/17 12:00 97.3 75 17 116/65 (82) 97 Constitutional Vital Signs Date Time Temp Pulse Resp B/P (MAP) Pulse Ox O2 Delivery O2 Flow Rate FiO2 09/15/17 08:00 96.7 76 18 135/61 (85) 100 09/15/17 04:06 97.9 76 18 126/59 (81) 98 09/15/17 00:03 98.4 75 18 123/63 (83) 98 09/14/17 20:06 97.3 74 18 110/58 (75) 99 09/14/17 18:33 96 09/14/17 17:44 98.3 09/14/17 15:45 61 17 109/60 (76) 96 09/14/17 14:00 18 09/14/17 12:00 97.3 75 17 116/65 (82) 97 (Charleen Multani) Review of Systems Constitutional: DENIES: Fever Cardiovascular: DENIES: Chest pain Gastrointestinal: DENIES: Nausea, Vomiting Musculoskeletal: COMPLAINS OF: Back pain Neurologic: COMPLAINS OF: Paresthesias Psychiatric: DENIES: Confusion (Charleen Multani) Physical Exam Alert and oriented. 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 Lumbar dressing is dry with [place] dressing. RUTH drain with minimal drainage. (Charleen Multani) Medications Current Medications Current Medications Medications (Trade) Dose Ordered Sig/Johnny Route PRN Reason Start Time Stop Time Status Last Admin Dose Admin IV Flush (NS Flush) 2 ml UNSCH PRN IVF FLUSH AFTER USING IV ACCESS 09/12/17 14:30 IV Flush (NS Flush) 2 ml BID IVF 09/12/17 14:30 09/14/17 08:51 Bisacodyl (Dulcolax Supp) 10 mg DAILY PRN RECTAL CONSTIPATION 09/12/17 14:30 Docusate Sodium (Colace) 100 mg BID PO 09/12/17 21:00 09/14/17 08:50 Magnesium Hydroxide (Milk Of Magnesia Liq) 30 ml DAILY PRN PO CONSTIPATION 09/12/17 14:30 09/14/17 07:21 Pantoprazole Sodium (Protonix) 40 mg DAILY PO 09/13/17 09:00 09/14/17 08:50 Ondansetron HCl (Zofran Inj) 4 mg Q6H PRN IV PUSH NAUSEA OR VOMITING 09/12/17 14:30 Cyclobenzaprine HCl (Flexeril) 10 mg Q8H PRN PO MUSCLE SPASM 09/12/17 14:30 09/15/17 04:18 Clonidine (Catapres) 0.1 mg Q6H PRN PO/NG SYS BP GREATER THAN 170 MMHG 09/12/17 14:30 Acetaminophen (Tylenol) 650 mg Q4H PRN PO TEMPERATURE > 101.5 F 09/12/17 14:30 Menthol ([place] Sahil) 1 lozenge UNSCH PRN BUCCAL SORE THROAT 09/12/17 14:30 Albuterol Sulfate (Albuterol Neb) 2.5 mg Q4HR NEB PRN INH WHEEZING 09/12/17 14:30 Dextrose (D50w (Vial) Inj) 50 ml UNSCH PRN IV PUSH HYPOGLYCEMIA-SEE COMMENTS 09/12/17 14:30 Glucagon (Glucagon Inj) 1 mg UNSCH PRN OTHER HYPOGLYCEMIA-SEE COMMENTS 09/12/17 14:30 Insulin Aspart (NovoLOG SUPPLEMENTAL SCALE) 1 ACHS SLIDING SCALE SQ 09/12/17 17:00 09/14/17 22:44 Acetaminophen/ Hydrocodone Bitart ([place] 10-325 Mg) 1 tab Q4H PRN PO PAIN SCALE 1 TO 5 09/12/17 14:30 09/15/17 04:18 Acetaminophen/ Hydrocodone Bitart ([place] 10-325 Mg) 2 tab Q4H PRN PO PAIN SCALE 6 TO 10 09/12/17 14:30 Atenolol/ Chlorthalidone (Tenoretic 50-25 Mg) 1 tab BID PO 09/12/17 21:00 09/14/17 20:45 Cetirizine HCl (ZyrTEC) 10 mg DAILY PO 09/13/17 09:00 09/14/17 08:50 Gabapentin (Neurontin) 600 mg TID PO 09/12/17 18:00 09/14/17 17:41 Losartan Potassium (Cozaar) 50 mg DAILY PO 09/13/17 09:00 09/14/17 08:49 Sertraline HCl (Zoloft) 100 mg DAILY PO 09/13/17 09:00 09/14/17 08:49 Potassium Chloride/Sodium Chloride 1,000 ml @ 100 mls/hr Q10H IV 09/13/17 08:00 09/14/17 15:44 Patient Own Medication PT OWN MED: JARDIANCE (EMPAGLIFLOZ... DAILY PO 09/13/17 09:00 Future Hold Morphine Sulfate (Morphine Inj) 2 mg Q4H PRN IV PUSH BREAKTHROUGH PAIN 09/14/17 13:45 (Charleen Multani) Medical Decision Making MDM Remarks 67 y/o female s/p L2-4 PLIF 09/12/17, doing well, surgical pain improving (Charleen Multani) Plan Plan Remarks cont current pain regimen dc RUTH drain cont PT, ambulating TLSO when out of bed - orthotech to reevaluate fit dressing changes daily medical management following - appreciate assistance anticipate dc home tomorrow (Charleen Multani) Attending Statement The exam, history, and the medical decision-making described in the above note were completed with the assistance of the mid-level provider. I reviewed and agree with the findings presented. I attest that I had a [id number] encounter with the patient on the same day, and personally performed and documented my assessment and findings in the medical record. (Albaro Huffman MD) Charleen Multani Sep 15, 2017 09:11 Albaro Huffman MD Sep 16, 2017 16:46
[2017-09-15] MEDS: CETIRIZINE HCL 10 MG TAB PO SCH (09:25)
[2017-09-15] MEDS: DOCUSATE SODIUM 100 MG CAP PO SCH ×2 (09:26→21:52)
[2017-09-15] MEDS: ATENOLOL/CHLORTHALIDONE 50/25 TAB PO SCH ×2 (09:26→21:53)
[2017-09-15] MEDS: GABAPENTIN 300 MG CAP PO SCH ×3 (09:26→17:58)
[2017-09-15] MEDS: SERTRALINE HCL 100 MG TAB PO SCH (09:26)
[2017-09-15] MEDS: LOSARTAN 50 MG TAB PO SCH (09:26)
[2017-09-15] MEDS: PANTOPRAZOLE SOD 40 MG DELAYED RELEASE TAB PO SCH (09:27)
[2017-09-15] MEDS: NS + KCL 20 MEQ INJ 1,000 ML IV SCH ×2 (10:00→20:00)
[2017-09-15 10:46] LABS: PLATELET ESTIMATE SMEAR LOW (NORMAL); PLATELET MORPHOLOGY NORMAL (NORMAL); SCAN/DIFF AUTO DIFF CONFIRMED
[2017-09-15 12:00] VITALS: BP 100/54; PULSE 66; RESP 18; TEMP 95.8; O2SAT 99
--- NOTE | 2017-09-15 14:57 | HHI.PR ---
Subjective Remarks Follow up diabetes. The patient states that she is having some pain in her sides. No shortness of breath or chest pain. No nausea or vomiting. Objective Vitals Vital Signs Date Time Temp Pulse Resp B/P (MAP) Pulse Ox O2 Delivery O2 Flow Rate FiO2 09/15/17 08:00 96.7 76 18 135/61 (85) 100 09/15/17 04:06 97.9 76 18 126/59 (81) 98 09/15/17 00:03 98.4 75 18 123/63 (83) 98 09/14/17 20:06 97.3 74 18 110/58 (75) 99 09/14/17 18:33 96 09/14/17 17:44 98.3 09/14/17 15:45 61 17 109/60 (76) 96 I/O 09/14/17 09/14/17 09/14/17 09/15/17 09/15/17 09/15/17 07:00 15:00 23:00 07:00 15:00 23:00 Intake Total 480 ml 850 ml 538.8 ml 480 ml Output Total 1210 ml 3260 ml 2105 ml 1200 ml Balance -730 ml -2410 ml -1566.2 ml -720 ml Intake Oral 480 ml 850 ml 480 ml 480 ml IV Total 58.8 ml Output Urine Total 1200 ml 3250 ml 2100 ml 1200 ml Drainage Total 10 ml 10 ml 5 ml # Bowel Movements 0 2 0 0 Result Diagram: 09/15/17 0545 09/15/17 0545 Imaging Last Impressions Lumbar Spine X-Ray 09/12/17 0000 Signed Impressions: Service Date/Time: Tuesday, September 12, 2017 09:37 - CONCLUSION: Three-level transpedicular posterior fixation with intervertebral disc prostheses. Jasper Slater MD Objective Remarks General: No acute distress. Heart: Regular rate and rhythm. No murmur. Lungs: Clear to auscultation bilaterally. No wheezes, rales, or rhonchi. Breathing is nonlabored. Abdomen: Soft, nontender, nondistended. Extremities: No lower extremity edema. SCDs. Psych: Alert and oriented. Procedures 09/12/17 lumbar laminectomy Urinary Catheter: No Vascular Central Line Catheter: No A/P Problem List: (1) Lumbar stenosis ICD Code: M48.061 - Spinal stenosis, lumbar region without neurogenic claudication Status: Acute (2) S/P lumbar laminectomy ICD Code: Z98.890 - Other specified postprocedural states Status: Acute (3) HTN (hypertension) ICD Code: I10 - Essential (primary) hypertension Status: Chronic (4) DM type 2 (diabetes mellitus, type 2) ICD Code: E11.9 - Type 2 diabetes mellitus without complications Status: Chronic Assessment and Plan 1. Lumbar spinal stenosis: Status post lumbar laminectomy. Management per neurosurgery. Continue pain control. Physical therapy. 2. Hypertension, chronic: Continue atenolol, chlorthalidone, losartan. 3. Diabetes mellitus type 2: Continue Jardiance. Restart glipizide, metformin. Monitor Accu-Cheks and cover with sliding scale insulin. Diabetic diet. 4. Anxiety: Continue sertraline. 5. DVT prophylaxis: SCDs. Discharge Planning Possible discharge home tomorrow per neurosurgery. Ryan Back MD Sep 15, 2017 14:57
[2017-09-15 16:00] VITALS: BP 106/46; PULSE 64; RESP 18; TEMP 96.2; O2SAT 98
[2017-09-15 20:11] VITALS: BP 107/55; PULSE 69; RESP 17; TEMP 97.6; O2SAT 98
[2017-09-15] MEDS: glipiZIDE 5 MG TAB PO SCH (21:52)
[2017-09-15] MEDS: metFORMIN HCL 500 MG TAB PO SCH (21:52)
[2017-09-16 00:05] VITALS: BP 100/51; PULSE 64; RESP 17; TEMP 97.1; O2SAT 98
[2017-09-16] MEDS: CYCLOBENZAPRINE HCL 10 MG TAB PO PRN ×2 (00:22→12:17)
[2017-09-16] MEDS: NS + KCL 20 MEQ INJ 1,000 ML IV SCH (04:07)
[2017-09-16] MEDS: ACETAMINOPHEN/HYDROcodone 325 MG/10 MG TAB PO PRN ×3 (04:07→12:17)
[2017-09-16 04:12] VITALS: BP 147/64; PULSE 70; RESP 17; TEMP 96.4; O2SAT 98
[2017-09-16 08:00] VITALS: BP 107/52; PULSE 65; RESP 16; TEMP 96; O2SAT 97
[2017-09-16] MEDS: INSULIN ASPART SUPPLEMENTAL SCALE SQ SCH (08:21)
[2017-09-16] MEDS: GABAPENTIN 300 MG CAP PO SCH (08:21)
[2017-09-16] MEDS: SERTRALINE HCL 100 MG TAB PO SCH (08:22)
[2017-09-16] MEDS: ATENOLOL/CHLORTHALIDONE 50/25 TAB PO SCH (08:22)
[2017-09-16] MEDS: CETIRIZINE HCL 10 MG TAB PO SCH (08:22)
[2017-09-16] MEDS: metFORMIN HCL 500 MG TAB PO SCH (08:22)
[2017-09-16] MEDS: LOSARTAN 50 MG TAB PO SCH (08:22)
[2017-09-16] MEDS: DOCUSATE SODIUM 100 MG CAP PO SCH (08:22)
[2017-09-16] MEDS: glipiZIDE 5 MG TAB PO SCH (08:22)
[2017-09-16] MEDS: PANTOPRAZOLE SOD 40 MG DELAYED RELEASE TAB PO SCH (08:22)
[2017-09-16 08:25] LABS: AUTOMATED NEUTROPHIL # 2.8 TH/MM3 (1.8-7.7); BASOPHIL % 0.7 % (0.0-2.0); EOSINOPHIL # 0.2 TH/MM3 (0-0.4); EOSINOPHIL % 4.4 % (0.0-4.0); HEMATOCRIT 28.5 % (35.0-46.0); HEMO FLAGS DIFF FINAL; LYMPH % 19.4 % (9.0-44.0); LYMPHOCYTE # 0.9 TH/MM3 (1.0-4.8); MEAN CELL VOLUME 89.2 FL (80.0-100.0); MEAN CORPUSCULAR HEMOGLOBIN 31.6 PG (27.0-34.0); MEAN CORPUSCULAR HGB CONC 35.4 % (32.0-36.0); MONO % 12.3 % (0.0-8.0); NEUT % 63.2 % (16.0-70.0); PLATELET COUNT 166 TH/MM3 (150-450); RED CELL DISTRIBUTION WIDTH 13.6 % (11.6-17.2); WHITE BLOOD COUNT 4.5 TH/MM3 (4.0-11.0)
[2017-09-16 08:58] LABS: BICARBONATE 32.2 MEQ/L (21.0-32.0)
[2017-09-16] MEDS: SODIUM CHLORIDE 0.9% FLUSH 5 ML FLUSH IVF SCH (09:00)
[2017-09-16] MEDS ORDERED: POTA-163 PO (09:27)
[2017-09-16] MEDS ORDERED: POTASSIUM CHLORIDE 10 MEQ CONTROLLED RELEASE TAB PO SCH (09:30)
--- NOTE | 2017-09-16 09:30 | HHI.DCPOC ---
Discharge Care Plan Diagnosis: (1) S/P lumbar spinal fusion Goals to Promote Your Health * To prevent worsening of your condition and complications * To maintain your health at the optimal level Directions to Meet Your Goals Take your medications as prescribed Follow your dietary instruction Follow activity as directed Keep your appointments as scheduled Take your immunizations and boosters as scheduled If your symptoms worsen call your PCP, if no PCP go to Urgent Care Center or Emergency Room Smoking is Dangerous to Your Health. Avoid second hand smoke Call the 24-hour hour crisis hotline for domestic abuse at Charleen Multani Sep 16, 2017 09:29
--- NOTE | 2017-09-16 09:33 | HHI.PR ---
Subjective Remarks Follow up diabetes, hypokalemia. Patient having pain across low back. No other complaints. Denies chest pain, dyspnea. Objective Vitals Vital Signs Date Time Temp Pulse Resp B/P (MAP) Pulse Ox O2 Delivery O2 Flow Rate FiO2 09/16/17 07:41 Room Air 09/16/17 04:12 96.4 70 17 147/64 (91) 98 09/16/17 00:05 97.1 64 17 100/51 (67) 98 09/15/17 20:11 97.6 69 17 107/55 (72) 98 09/15/17 16:00 96.2 64 18 106/46 (66) 98 09/15/17 12:00 95.8 66 18 100/54 (69) 99 I/O 09/15/17 09/15/17 09/15/17 09/16/17 09/16/17 09/16/17 07:00 15:00 23:00 07:00 15:00 23:00 Intake Total 480 ml 600 ml 360 ml 360 ml Output Total 1200 ml Balance -720 ml 600 ml 360 ml 360 ml Intake Oral 480 ml 600 ml 360 ml 360 ml Output Urine Total 1200 ml # Voids 3 2 3 # Bowel Movements 0 0 0 0 Result Diagram: 09/16/17 0736 09/16/17 0730 Imaging Last Impressions Lumbar Spine X-Ray 09/12/17 0000 Signed Impressions: Service Date/Time: Tuesday, September 12, 2017 09:37 - CONCLUSION: Three-level transpedicular posterior fixation with intervertebral disc prostheses. Jasper Slater MD Objective Remarks General: No acute distress. Heart: Regular rate and rhythm. No murmur. Lungs: Clear to auscultation bilaterally. No wheezes, rales, or rhonchi. Breathing is nonlabored. Abdomen: Soft, nontender, nondistended. Extremities: No lower extremity edema. SCDs. Psych: Alert and oriented. Procedures 09/12/17 lumbar laminectomy Urinary Catheter: No Vascular Central Line Catheter: No A/P Problem List: (1) Lumbar stenosis ICD Code: M48.061 - Spinal stenosis, lumbar region without neurogenic claudication Status: Acute (2) S/P lumbar laminectomy ICD Code: Z98.890 - Other specified postprocedural states Status: Acute (3) HTN (hypertension) ICD Code: I10 - Essential (primary) hypertension Status: Chronic (4) DM type 2 (diabetes mellitus, type 2) ICD Code: E11.9 - Type 2 diabetes mellitus without complications Status: Chronic Assessment and Plan 1. Lumbar spinal stenosis: Status post lumbar laminectomy. Management per neurosurgery. Continue pain control. Physical therapy. 2. Hypertension, chronic: Continue atenolol, chlorthalidone, losartan. 3. Diabetes mellitus type 2: Continue Jardiance, glipizide, metformin. Monitor Accu-Cheks and cover with sliding scale insulin. Diabetic diet. 4. Anxiety: Continue sertraline. 5. DVT prophylaxis: SCDs. 6. Hypokalemia: Supplement potassium. Will need to be monitored as an outpatient. Discharge Planning Discharge home today per neurosurgery. Ryan Back MD Sep 16, 2017 09:33
[2017-09-16] MEDS ORDERED: HYDR-3583 PO (11:35)
[2017-09-16] MEDS ORDERED: ZANA4CAP PO (11:40)
== END 2017-09-16 15:01 | disposition home or self-care (01) | DRG 460 ==
LOC: HSDI 06:22 → EDSTATUS 08:30 → N06A 17:09
PROVIDERS: ADMIT Neurological Surgery; ATTEND Neurological Surgery
PROC: 0SB20ZZ Excision of Lumbar Vertebral Disc, Open Approach (ICD-10-PCS; 2017-09-12)
PROC: 0QB30ZZ Excision of Left Pelvic Bone, Open Approach (ICD-10-PCS; 2017-09-12)
PROC: 0SG10AJ Fusion of 2 or more Lumbar Vertebral Joints with Interbody Fusion Device, Posterior Approach, Anterior Column, Open Approach (ICD-10-PCS; principal; 2017-09-12 08:31)
DX: M43.10 Spondylolisthesis, site unspecified (principal); I10 Essential (primary) hypertension; M47.816 Spondylosis without myelopathy or radiculopathy, lumbar region; M48.061 Spinal stenosis, lumbar region without neurogenic claudication; E11.9 Type 2 diabetes mellitus without complications; F41.9 Anxiety disorder, unspecified; E87.6 Hypokalemia; G89.29 Other chronic pain; Z79.899 Other long term (current) drug therapy; M54.5 Low back pain
CPT/HCPCS: 72100; 76000; 80048; 82948; 83735; 85025; 86850; 86900; 86901; 94150; J0690; J1100; J1170; J1200; J1580; J1644; J1815; J2250; J2270; J2370; J2405; J3010; J3370; J3480; J7030; J7040; J7120; L0484